=== PATIENT | male | born 2000 | race Caucasian/White ===

== ENCOUNTER 2023-10-10 19:35 | Emergency (ER) | payer OTHER ==
[~2023-10-10] VITALS: Ht 182.9 cm; Wt 124.6 kg
[2023-10-10] MEDS ORDERED: WELLTAB40 PO (19:43)
[2023-10-10] MEDS ORDERED: SERO200T PO (19:43)
[2023-10-10] MEDS ORDERED: CLON0.2T PO (19:43)
[2023-10-10] MEDS ORDERED: IBUPROFEN 600MG TAB PO ONE (20:30)
[2023-10-10] MEDS ORDERED: AUGMENTIN 875 MG TAB PO ONE (20:30)
[2023-10-10] MEDS ORDERED: AMOX875T2 PO (20:41)
[2023-10-10 20:58] VITALS: BP 148/86; TEMP 97.9; O2SAT 99
== END 2023-10-10 21:02 | disposition home or self-care (01) ==
LOC: M ED 19:35
DX: K02.9 Dental caries, unspecified (principal); Z88.8 Allergy status to other drugs, medicaments and biological substances; Z79.2 Long term (current) use of antibiotics; Z79.899 Other long term (current) drug therapy

== ENCOUNTER → 2023-11-18 | Outpatient (CLI) | payer OTHER ==
[~2023-11-18] MED LIST: AMOX875T2 PO; CLON0.2T PO; SERO200T PO; WELLTAB40 PO
[2023-11-18 14:11] LABS: HEMATOCRIT 42.7 % (42.0-52.0); HEMOGLOBIN 15.4 g/dl (13.5-17.5); MEAN CORPUSCULAR HEMOGLOBIN 31.1 pg (27.0-33.0); MEAN CORPUSCULAR HGB CONC 36.1 g/dl (32.0-36.5); MEAN CORPUSCULAR VOLUME 86.3 fl (80.0-96.0); PLATELET COUNT, AUTOMATED 250 10^3/uL (150-450); RED BLOOD COUNT 4.95 10^6/uL (4.30-6.10); WHITE BLOOD COUNT 6.4 10^3/uL (4.0-10.0)
[2023-11-18 14:48] LABS: ALBUMIN 3.8 G/DL (3.2-5.2); ALKALINE PHOSPHATASE 43 U/L (46-116); ALT/SGPT 60 U/L (7.0-40); AST/SGOT 49 U/L (<34); BILIRUBIN,TOTAL 0.5 MG/DL (0.3-1.2); BLOOD UREA NITROGEN 12 MG/DL (9-23); CALCIUM LEVEL 8.9 MG/DL (8.5-10.1); CARBON DIOXIDE LEVEL 30 MMOL/L (20-31); CHLORIDE LEVEL 103 MMOL/L (98-107); CREATININE FOR GFR 0.83 MG/DL (0.70-1.30); GLOMERULAR FILTRATION RATE > 60.0 (>60); GLUCOSE, FASTING 78 MG/DL (60-100); POTASSIUM SERUM 4.4 MMOL/L (3.5-5.1); SODIUM LEVEL 137 MMOL/L (136-145); TOTAL PROTEIN 7.8 G/DL (5.7-8.2)
[2023-11-18 15:20] LABS: HIV 1&2 SCREEN NEGATIVE (NEGATIVE)
[2023-11-18 15:33] LABS: HEPATITIS C VIRUS ABY INDEX > 11.00 INDEX (<0.8)
== END ==
LOC: M LAB 12:53
PROVIDERS: ATTEND Family Medicine
DX: F11.20 Opioid dependence, uncomplicated (principal)

== ENCOUNTER → 2023-11-18 | Outpatient (CLI) | payer OTHER ==
[2023-11-18 14:16] LABS: APPEARANCE, URINE HAZY (CLEAR); BACTERIA, URINE AUTO NEGATIVE (NEGATIVE); BILIRUBIN, URINE AUTO NEGATIVE (NEGATIVE); BLOOD, URINE BLOOD NEGATIVE (NEGATIVE); COLOR, URINE YELLOW (YELLOW); GLUCOSE, URINE (UA) AUTO NEGATIVE (NEGATIVE); KETONE, URINE AUTO NEGATIVE (NEGATIVE); LEUKOCYTE ESTERASE, URINE AUTO NEGATIVE (NEGATIVE); MUCUS, URINE SMALL (NEGATIVE); NITRITE, URINE AUTO NEGATIVE (NEGATIVE); PROTEIN, URINE AUTO NEGATIVE (NEGATIVE); RBC, URINE AUTO 0 /HPF (0-3); SPECIFIC GRAVITY URINE AUTO 1.012 (1.002-1.035); SQUAMOUS EPITHELIAL CELL UR AU 0 /HPF (0-6); UROBILINOGEN, URINE AUTO 0.2 mg/dL (0.0-2.0); WBC, URINE AUTO 1 /HPF (0-3)
[2023-11-18 15:15] LABS: BASO % 0.6 % (0.0-1.0); EOS # 0.2 10^3/uL (0.0-0.5); EOS % 2.6 % (0.0-3.0); HEMATOCRIT 43.7 % (42.0-52.0); HEMOGLOBIN 15.4 g/dl (13.5-17.5); LYMPH # 2.7 10^3/uL (1.5-5.0); LYMPH % 41.1 % (24.0-44.0); MEAN CORPUSCULAR HEMOGLOBIN 30.5 pg (27.0-33.0); MEAN CORPUSCULAR HGB CONC 35.2 g/dl (32.0-36.5); MEAN CORPUSCULAR VOLUME 86.5 fl (80.0-96.0); MONO # 0.4 10^3/uL (0.0-0.8); MONO % 6.5 % (2.0-8.0); NEUTROPHILS # 3.2 10^3/uL (1.5-8.5); PLATELET COUNT, AUTOMATED 252 10^3/uL (150-450); RED BLOOD COUNT 5.05 10^6/uL (4.30-6.10); WHITE BLOOD COUNT 6.5 10^3/uL (4.0-10.0)
[2023-11-18 15:42] LABS: ALBUMIN 3.8 G/DL (3.2-5.2); ALKALINE PHOSPHATASE 44 U/L (46-116); ALT/SGPT 64 U/L (7.0-40); AST/SGOT 50 U/L (<34); BILIRUBIN,TOTAL 0.5 MG/DL (0.3-1.2); BLOOD UREA NITROGEN 13 MG/DL (9-23); CALCIUM LEVEL 9.1 MG/DL (8.5-10.1); CARBON DIOXIDE LEVEL 30 MMOL/L (20-31); CHLORIDE LEVEL 104 MMOL/L (98-107); CREATININE FOR GFR 0.86 MG/DL (0.70-1.30); GLOMERULAR FILTRATION RATE > 60.0 (>60); GLUCOSE, FASTING 74 MG/DL (60-100); POTASSIUM SERUM 4.4 MMOL/L (3.5-5.1); SODIUM LEVEL 138 MMOL/L (136-145); TOTAL PROTEIN 7.5 G/DL (5.7-8.2)
[2023-11-18 16:17] LABS: HEPATITIS B CORE ANTIBODY IGM NEGATIVE (NEGATIVE)
[2023-11-18 17:18] LABS: HEPATITIS C VIRUS ABY INDEX > 11.00 INDEX (<0.8)
== END ==
LOC: M LAB 12:54
PROVIDERS: ATTEND Family Medicine Addiction Medicine
DX: E66.3 Overweight (principal); Z11.1 Encounter for screening for respiratory tuberculosis

== ENCOUNTER 2023-12-12 15:01 | Emergency (ER) | payer OTHER ==
[~2023-12-12] VITALS: Ht 182.9 cm; Wt 125.4 kg
[2023-12-12] MEDS ORDERED: OMEP40CA4 PO (15:16)
[2023-12-12] MEDS ORDERED: METH40TA3 PO (15:16)
[2023-12-12] MEDS ORDERED: TRAZ-252 PO (15:16)
[2023-12-12] MEDS ORDERED: OXYB5TAB14 PO (15:16)
[2023-12-12] MEDS ORDERED: ISOVUE-370 76% 100ML VIAL As Ordered ONE (19:05)
[2023-12-12 19:15] LABS: BASO # 0.1 10^3/uL (0.0-0.2); BASO % 0.4 % (0.0-1.0); EOS # 0.1 10^3/uL (0.0-0.5); EOS % 0.7 % (0.0-3.0); HEMATOCRIT 44.2 % (42.0-52.0); HEMOGLOBIN 15.9 g/dl (13.5-17.5); LYMPH # 1.9 10^3/uL (1.5-5.0); LYMPH % 15.1 % (24.0-44.0); MEAN CORPUSCULAR HEMOGLOBIN 30.5 pg (27.0-33.0); MEAN CORPUSCULAR VOLUME 84.7 fl (80.0-96.0); MONO # 0.6 10^3/uL (0.0-0.8); NEUTROPHILS # 9.7 10^3/uL (1.5-8.5); NEUTROPHILS % 78.5 % (36.0-66.0); PLATELET COUNT, AUTOMATED 235 10^3/uL (150-450); RED BLOOD COUNT 5.22 10^6/uL (4.30-6.10); WHITE BLOOD COUNT 12.4 10^3/uL (4.0-10.0)
[2023-12-12] MEDS: PIPERACILLIN/TAZOBACTAM SOD 4.5 GM in D5W MINI-BAG PLUS 50 ML IV ONE (19:17)
[2023-12-12] MEDS: KETOROLAC 30 MG/ML 1ML VIAL IV ONE (19:17)
[2023-12-12 19:22] LABS: ERYTHROCYTE SEDIMENTATION RATE 33 mm/hr (0-15)
[2023-12-12 19:31] VITALS: BP 146/81; TEMP 99; O2SAT 99
[2023-12-12 19:33] LABS: BLOOD UREA NITROGEN 11 MG/DL (9-23); CALCIUM LEVEL 8.8 MG/DL (8.5-10.1); CARBON DIOXIDE LEVEL 25 MMOL/L (20-31); CHLORIDE LEVEL 106 MMOL/L (98-107); CREATININE FOR GFR 0.88 MG/DL (0.70-1.30); GLOMERULAR FILTRATION RATE > 60.0 (>60); GLUCOSE, FASTING 93 MG/DL (60-100); POTASSIUM SERUM 5.1 MMOL/L (3.5-5.1); SODIUM LEVEL 137 MMOL/L (136-145)
[2023-12-12] MEDS ORDERED: AMOX875T2 PO (19:46)
[2023-12-12] MEDS ORDERED: IBUP-1022 PO (19:46)
== END 2023-12-12 20:04 | disposition home or self-care (01) ==
LOC: M ED 15:01
DX: L03.211 Cellulitis of face (principal); Z79.899 Other long term (current) drug therapy; Z88.8 Allergy status to other drugs, medicaments and biological substances
CPT/HCPCS: 70487; 80047; 80048; 85025; 85652; 86140; 96365; 96375; 99284; J1885; J2543; Q9967

== ENCOUNTER 2023-12-13 21:16 | Inpatient (IN) | payer OTHER ==
[~2023-12-13] VITALS: Ht 182.9 cm; Wt 126.8 kg
[~2023-12-13 21:16] MED LIST changes: +IBUP-1022 PO; +METH40TA3 PO; +OMEP40CA4 PO; +OXYB5TAB14 PO; +TRAZ-252 PO
[2023-12-13 22:19] LABS: BASO # 0.1 10^3/uL (0.0-0.2); BASO % 0.4 % (0.0-1.0); EOS # 0.2 10^3/uL (0.0-0.5); EOS % 1.5 % (0.0-3.0); HEMATOCRIT 40.1 % (42.0-52.0); HEMOGLOBIN 14.3 g/dl (13.5-17.5); LYMPH # 2.9 10^3/uL (1.5-5.0); LYMPH % 20.6 % (24.0-44.0); MEAN CORPUSCULAR HEMOGLOBIN 30.8 pg (27.0-33.0); MEAN CORPUSCULAR HGB CONC 35.7 g/dl (32.0-36.5); MEAN CORPUSCULAR VOLUME 86.2 fl (80.0-96.0); MONO # 0.9 10^3/uL (0.0-0.8); MONO % 6.4 % (2.0-8.0); NEUTROPHILS # 9.9 10^3/uL (1.5-8.5); NEUTROPHILS % 70.8 % (36.0-66.0); PLATELET COUNT, AUTOMATED 200 10^3/uL (150-450); RED BLOOD COUNT 4.65 10^6/uL (4.30-6.10)
[2023-12-13 22:34] LABS: BLOOD UREA NITROGEN 9 MG/DL (9-23); CALCIUM LEVEL 8.2 MG/DL (8.5-10.1); CARBON DIOXIDE LEVEL 26 MMOL/L (20-31); CHLORIDE LEVEL 107 MMOL/L (98-107); CREATININE FOR GFR 0.97 MG/DL (0.70-1.30); GLOMERULAR FILTRATION RATE > 60.0 (>60); GLUCOSE, FASTING 92 MG/DL (60-100); POTASSIUM SERUM 4.1 MMOL/L (3.5-5.1); SODIUM LEVEL 138 MMOL/L (136-145)
[2023-12-13 23:03] LABS: ERYTHROCYTE SEDIMENTATION RATE 17 mm/hr (0-15)
[2023-12-14] MEDS ORDERED: VANCOMYCIN HCL 2,000 MG in IV FLUID PLACE HOLDER 1 EA IV ONE (00:25)
[2023-12-14] MEDS ORDERED: ISOVUE-370 76% 100ML VIAL As Ordered ONE (00:31)
[2023-12-14] MEDS: IBUPROFEN 800 MG TAB PO ONE (04:10)
[2023-12-14] MEDS: KETOROLAC 30 MG/ML 1ML VIAL IV ONE (04:23)
[2023-12-14] MEDS: VANCOMYCIN HCL 1,000 MG, VIAL MATE ADAPTER 1 EACH in D5W 250 ML IV ONE ×2 (04:44→05:50)
[2023-12-14] MEDS ORDERED: CLON0.3T PO (06:34)
[2023-12-14] MEDS ORDERED: HOME MED LIST COMPLETE! XX SCH (06:35)
[2023-12-14] MEDS: diphenhydrAMINE 50MG/ML VIAL IV STA (07:24)
[2023-12-14] MEDS: PIPERACILLIN/TAZOBACTAM SOD 3.375 GM in D5W MINI-BAG PLUS 50 ML IV ONE (08:06)
[2023-12-14 08:39] LABS: PROCALCITONIN 0.04 ng/ml
[2023-12-14 09:13] LABS: ALBUMIN 3.7 G/DL (3.2-5.2); ALKALINE PHOSPHATASE 43 U/L (46-116); ALT/SGPT 47 U/L (7.0-40); AST/SGOT 33 U/L (<34); BILIRUBIN,DIRECT 0.2 MG/DL (<0.4); BILIRUBIN,TOTAL 0.4 MG/DL (0.3-1.2); TOTAL PROTEIN 7.1 G/DL (5.7-8.2)
[2023-12-14] MEDS ORDERED: PILL CUTTER 1 EACH XX ONE (10:26)
[2023-12-14] MEDS: oxyBUTYnin 5 MG TAB PO SCH (11:08)
[2023-12-14] MEDS: OMEPRAZOLE 20MG CAP PO SCH (11:08)
[2023-12-14] MEDS: buPROPion **XL** TABLET 150MG (WELLBUTRIN XL) PO SCH (11:08)
[2023-12-14] MEDS: cloNIDine 0.1MG TABLET PO SCH (11:10)
[2023-12-14 11:45] VITALS: BP 154/87; TEMP 97.9; O2SAT 95
[2023-12-14] MEDS: VANCOMYCIN HCL 1,000 MG, VIAL MATE ADAPTER 1 EACH in D5W 250 ML IV SCH (12:32)
[2023-12-14] MEDS: METHADONE 10MG TAB PO SCH (12:32)
[2023-12-14 14:40] VITALS: BP 143/82; TEMP 98.1; O2SAT 96
[2023-12-14] MEDS: HEPARIN SOD (PORCINE) 5000UNITS/ML 1ML VIAL/SYRINGE SC SCH (15:15)
[2023-12-14] MEDS: PIPERACILLIN/TAZOBACTAM SOD 4.5 GM in D5W MINI-BAG PLUS 50 ML IV SCH (15:16)
[2023-12-14] MEDS: traZODone 50 MG TAB PO SCH (20:28)
[2023-12-14] MEDS: KETOROLAC 30 MG/ML 1ML VIAL IV PRN (20:33)
[2023-12-14 20:44] VITALS: BP 140/80; TEMP 97.9; O2SAT 95
[2023-12-15 06:06] VITALS: BP 139/78; TEMP 97.7; O2SAT 96
[2023-12-15 09:05] LABS: HEMATOCRIT 39.5 % (42.0-52.0); HEMOGLOBIN 14.2 g/dl (13.5-17.5); MEAN CORPUSCULAR HEMOGLOBIN 30.9 pg (27.0-33.0); MEAN CORPUSCULAR HGB CONC 35.9 g/dl (32.0-36.5); MEAN CORPUSCULAR VOLUME 85.9 fl (80.0-96.0); PLATELET COUNT, AUTOMATED 202 10^3/uL (150-450); WHITE BLOOD COUNT 9.1 10^3/uL (4.0-10.0)
[2023-12-15 09:28] LABS: BLOOD UREA NITROGEN 8 MG/DL (9-23); CALCIUM LEVEL 8.4 MG/DL (8.5-10.1); CARBON DIOXIDE LEVEL 28 MMOL/L (20-31); CHLORIDE LEVEL 104 MMOL/L (98-107); CREATININE FOR GFR 0.89 MG/DL (0.70-1.30); GLOMERULAR FILTRATION RATE > 60.0 (>60); GLUCOSE, FASTING 92 MG/DL (60-100); POTASSIUM SERUM 3.9 MMOL/L (3.5-5.1); SODIUM LEVEL 139 MMOL/L (136-145)
[2023-12-15 09:40] LABS: PROCALCITONIN <0.04 ng/ml
[2023-12-15 14:00] VITALS: BP 160/91; TEMP 97.7; O2SAT 96
[2023-12-15] MEDS: BOOSTRIX VACCINE (TETANUS/DIPHTH/ACEL. PERTUSSIS) 0.5ML SYR IM ONE (16:20)
[2023-12-15 20:00] VITALS: BP 147/84; TEMP 97.5; O2SAT 96
[2023-12-16 05:12] VITALS: BP 146/86; TEMP 97.5; O2SAT 95
[2023-12-16 11:26] LABS: BASO # 0.1 10^3/uL (0.0-0.2); BASO % 0.8 % (0.0-1.0); EOS # 0.4 10^3/uL (0.0-0.5); EOS % 6.8 % (0.0-3.0); HEMATOCRIT 40.1 % (42.0-52.0); HEMOGLOBIN 14.1 g/dl (13.5-17.5); LYMPH # 1.7 10^3/uL (1.5-5.0); LYMPH % 26.1 % (24.0-44.0); MEAN CORPUSCULAR HEMOGLOBIN 30.4 pg (27.0-33.0); MEAN CORPUSCULAR HGB CONC 35.2 g/dl (32.0-36.5); MEAN CORPUSCULAR VOLUME 86.4 fl (80.0-96.0); MONO # 0.4 10^3/uL (0.0-0.8); MONO % 6.3 % (2.0-8.0); NEUTROPHILS # 3.8 10^3/uL (1.5-8.5); NEUTROPHILS % 59.7 % (36.0-66.0); PLATELET COUNT, AUTOMATED 227 10^3/uL (150-450); RED BLOOD COUNT 4.64 10^6/uL (4.30-6.10); WHITE BLOOD COUNT 6.3 10^3/uL (4.0-10.0)
[2023-12-16 11:57] LABS: BLOOD UREA NITROGEN 9 MG/DL (9-23); CALCIUM LEVEL 8.5 MG/DL (8.5-10.1); CARBON DIOXIDE LEVEL 30 MMOL/L (20-31); CHLORIDE LEVEL 110 MMOL/L (98-107); CREATININE FOR GFR 0.79 MG/DL (0.70-1.30); GLOMERULAR FILTRATION RATE > 60.0 (>60); GLUCOSE, FASTING 102 MG/DL (60-100); POTASSIUM SERUM 4.4 MMOL/L (3.5-5.1); SODIUM LEVEL 140 MMOL/L (136-145); VANCOMYCIN LEVEL TROUGH 11.4 UG/ML (10.0-20.0)
[2023-12-16] MEDS: VANCOMYCIN HCL 1,000 MG, VIAL MATE ADAPTER 1 EACH in D5W 250 ML IV SCH (12:26)
[2023-12-16 14:00] VITALS: BP 154/99; TEMP 97.7; O2SAT 96
[2023-12-16 20:50] VITALS: BP 156/84; TEMP 97.9; O2SAT 97
[2023-12-17 06:05] VITALS: BP 144/76; TEMP 97.5; O2SAT 96
[2023-12-17] MEDS: BACTRIM 160MG/800MG DS TAB PO SCH (08:47)
[2023-12-17 08:49] VITALS: BP 144/76
[2023-12-17] MEDS ORDERED: MUPI30CR TOP (11:38)
[2023-12-17] MEDS ORDERED: BACTDSTA PO (11:38)
[2023-12-17 23:07] LABS: HEPATITIS A IgG TOTAL Positive (Negative); HEPATITIS B CORE ANTIBODY IGG Negative (Negative)
== END 2023-12-17 12:55 | disposition home or self-care (01) | DRG 383 ==
LOC: M ED 21:16 → M ED INP 21:17 → OBSVTOIN 21:17 → EEVIPCON 21:17 → M MSPAV 12-14 11:32
PROVIDERS: ADMIT Internal Medicine; ATTEND Internal Medicine
DX: L03.211 Cellulitis of face (principal); L02.01 Cutaneous abscess of face; K21.9 Gastro-esophageal reflux disease without esophagitis; F39 Unspecified mood [affective] disorder; Z79.891 Long term (current) use of opiate analgesic; Z79.899 Other long term (current) drug therapy; Z88.8 Allergy status to other drugs, medicaments and biological substances

== ENCOUNTER → 2023-12-25 | Outpatient (CLI) | payer OTHER ==
[~2023-12-25] MED LIST changes: +BACTDSTA PO; +CLON0.3T PO; +MUPI30CR TOP
== END ==
LOC: M PLALAB 09:49
PROVIDERS: ATTEND Internal Medicine Infectious Disease
DX: B18.2 Chronic viral hepatitis C (principal)